=== PATIENT | female | born 1985 | race Asian ===

== ENCOUNTER 2021-06-17 18:02 | Inpatient (IN) ==
[2021-06-17] MEDS ORDERED: Buffered Lidocaine 1% SYRIN 1 ml INTRADERM ONE (19:44)
[2021-06-17] MEDS ORDERED: Lactated Ringers 1000 ml BAG 1,000 ML IV ONE (19:44)
[2021-06-17] MEDS ORDERED: Lactated Ringers 1000 ml BAG 1,000 ML IV SCH (20:00)
[2021-06-17 21:20] LABS: Urine Benzodiazepine Screen None Detected (None Detect); Urine Cannabinoids Screen None Detected (None Detect); Urine Opiates Screen None Detected (None Detect)
[2021-06-17 21:22] LABS: Rapid COVID-19 Molecular Undetected (Undetected)
[2021-06-17] MEDS ORDERED: Oxytocin in LR 20 UNITS/1,000 ML BAG IVPB SCH (22:00)
[2021-06-18 06:51] LABS: Hematocrit 38 % (35-47); Hemoglobin 13.2 g/dL (12.0-16.0); Mean Corpuscular HGB Conc 35 g/dL (31-36); Mean Corpuscular Hemoglobin 31 pg (27-31); Mean Corpuscular Volume 90 fL (80-97); Mean Platelet Volume 10.8 fL (7.4-10.4); Platelet Count 161 10^3/uL (150-450); Red Blood Count 4.25 10^6 /uL (3.70-4.87); Red Cell Distribution Width 14 % (10-15); White Blood Count 6.9 10^3/uL (3.5-10.8)
[2021-06-18] MEDS ORDERED: OBEPIDURAL 250 ML EPIDURAL ONE (12:18)
[2021-06-18] MEDS ORDERED: Lactated Ringers 1000 ml BAG 1,000 ML IV ONE (14:06)
[2021-06-18] MEDS ORDERED: Phenylephrine 40 mcg/mL 10mL (400mcg) SYRINGE IV PUSH PRN ×2 (14:06)
[2021-06-18] MEDS ORDERED: Lactated Ringers 1000 ml BAG 500 ML IV PRN ×2 (14:06)
[2021-06-18] MEDS ORDERED: Sodium Citrate/Citric Acid LIQ 15 ML UDC PO PRN (14:06)
[2021-06-18 14:58] LABS: Urine Appearance Clear; Urine Bilirubin Negative (Negative); Urine Blood 2+ (Negative); Urine Color Colorless; Urine Glucose Negative (Negative); Urine Ketones Negative (Negative); Urine Nitrite Negative (Negative); Urine Protein Negative (Negative); Urine Specific Gravity 1.003 (1.002-1.030); Urine Urobilinogen Negative (Negative)
[2021-06-18] MEDS ORDERED: Lactated Ringers 1000 ml BAG 1,000 ML IV SCH ×2 (15:00→21:00)
[2021-06-18] MEDS ORDERED: OBEPIDURAL 250 ML EPIDURAL SCH (15:00)
[2021-06-18 15:10] LABS: Urine Bacteria Absent (Absent); Urine Red Blood Cell Trace(0-2/hpf) (Absent); Urine White Blood Cell Absent (Absent)
[2021-06-18] MEDS ORDERED: Witch Hazel PAD JAR TOPICAL PRN (20:35)
[2021-06-18] MEDS: Dibucaine 1% OINT 28.35 GM TUBE PR PRN (20:57)
[2021-06-18] MEDS ORDERED: Oxytocin in LR 20 UNITS/1,000 ML BAG IVPB SCH (21:00)
[2021-06-18 22:58] LABS: ABS Lymphocytes 1.1 10^3/ul (1.0-4.8); ABS Monocytes 0.9 10^3/ul (0-0.8); Eosinophil % 0.1 %; Hematocrit 34 % (35-47); Hemoglobin 11.6 g/dL (12.0-16.0); Lymphocyte % 6.8 %; Mean Corpuscular HGB Conc 34 g/dL (31-36); Mean Corpuscular Hemoglobin 31 pg (27-31); Mean Corpuscular Volume 90 fL (80-97); Mean Platelet Volume 10.1 fL (7.4-10.4); Platelet Count 163 10^3/uL (150-450); Red Blood Count 3.76 10^6 /uL (3.70-4.87); Red Cell Distribution Width 14 % (10-15); White Blood Count 16.1 10^3/uL (3.5-10.8)
[2021-06-19] MEDS ORDERED: Lidocaine 1% VIAL 10 MG/ML VIAL ONE (00:06)
[2021-06-19 11:20] LABS: ABS Basophils 0.1 10^3/ul (0-0.2); ABS Eosinophils 0.1 10^3/ul (0-0.6); ABS Lymphocytes 1.2 10^3/ul (1.0-4.8); ABS Monocytes 0.8 10^3/ul (0-0.8); Eosinophil % 0.7 %; Hematocrit 28 % (35-47); Hemoglobin 9.5 g/dL (12.0-16.0); Lymphocyte % 9.9 %; Mean Corpuscular HGB Conc 34 g/dL (31-36); Mean Corpuscular Hemoglobin 30 pg (27-31); Mean Corpuscular Volume 88 fL (80-97); Mean Platelet Volume 10.2 fL (7.4-10.4); Platelet Count 139 10^3/uL (150-450); Red Blood Count 3.13 10^6 /uL (3.70-4.87); Red Cell Distribution Width 14 % (10-15); White Blood Count 12.1 10^3/uL (3.5-10.8)
[2021-06-20 07:54] VITALS: BP 111/67
[2021-06-20] MEDS: Dibucaine 1% OINT 28.35 GM TUBE PR PRN (11:50)
== END 2021-06-20 18:00 | disposition home or self-care (01) | DRG 768 ==
LOC: MCHOBOUT 18:02 → MCHOB 19:45
PROVIDERS: ADMIT Midwife; ATTEND Midwife

== ENCOUNTER 2023-10-09 09:13 | Inpatient (IN) ==
[2023-10-09] MEDS ORDERED: Lidocaine 1% VIAL 10 MG/ML 30 ML VIAL INJ PRN (10:21)
[2023-10-09] MEDS ORDERED: Lactated Ringers 1000 ml BAG 1,000 ML IV ONE ×2 (10:21→15:06)
[2023-10-09] MEDS ORDERED: Promethazine INJ(RESTRICTED) 25 MG/ML 1 ml VIAL IV PRN (10:21)
[2023-10-09] MEDS ORDERED: Buffered Lidocaine 1% SYRIN 1 ml INTRADERM ONE (10:21)
[2023-10-09] MEDS ORDERED: Oxytocin in LR 20,000 MILLI.UNIT/1,000 ML BAG IV SCH (10:25)
[2023-10-09] MEDS ORDERED: Ondansetron 4 mg VIAL 2 MG/ML 2 ml VIAL IV PRN (10:27)
[2023-10-09 11:10] LABS: ABS Eosinophils 0.1 10^3/uL (0.0-0.5); ABS Lymphocytes 1.3 10^3/uL (1.0-4.8); ABS Monocytes 0.5 10^3/uL (0.0-0.9); ABS Neutrophils 5.8 10^3/uL (1.5-7.6); Eosinophil % 0.9 %; Hematocrit 37.7 % (35-45); Lymphocyte % 16.4 %; Mean Corpuscular Hemoglobin 30.1 pg (27-33); Mean Corpuscular Hgb Conc 34.4 g/dL (31-36); Mean Corpuscular Volume 87.5 fL (80-97); Platelet Count 191 10^3/uL (150-450); Red Blood Count 4.31 10^6/uL (3.63-4.92); Red Cell Distribution Width 14.3 % (12-17); White Blood Count 7.7 10^3/uL (3.8-11.8)
[2023-10-09] MEDS: Lactated Ringers 1000 ml BAG 1,000 ML IV SCH ×2 (11:27→15:44)
[2023-10-09 11:35] LABS: Urine Benzodiazepine Screen None Detected (None Detect); Urine Cannabinoids Screen None Detected (None Detect); Urine Opiates Screen None Detected (None Detect)
[2023-10-09] MEDS ORDERED: OBEPIDURAL (200 ML) 200 ML EPIDURAL ONE (14:18)
[2023-10-09] MEDS ORDERED: Lidocaine 1.5% EPI 1:200,000 30 ML SDV ONE (14:19)
[2023-10-09] MEDS ORDERED: Phenylephrine 40 mcg/mL 10mL (400mcg) SYRINGE IV PUSH PRN ×2 (15:06)
[2023-10-09] MEDS ORDERED: Sodium Citrate/Citric Acid LIQ 15 ML UDC PO PRN (15:06)
[2023-10-09] MEDS ORDERED: OBEPIDURAL (200 ML) 200 ML EPIDURAL SCH (16:00)
[2023-10-09] MEDS ORDERED: Lactated Ringers 1000 ml BAG 1,000 ML IV SCH ×2 (16:00→19:00)
[2023-10-09 16:45] LABS: Urine Appearance Clear; Urine Bilirubin Negative (Negative); Urine Blood Negative (Negative); Urine Color Straw; Urine Glucose 1+(50 mg/dL) (Negative); Urine Ketones Negative (Negative); Urine Nitrite Negative (Negative); Urine Protein Negative (Negative); Urine Specific Gravity 1.005 (1.002-1.030); Urine Urobilinogen Negative (Negative)
[2023-10-09] MEDS ORDERED: Glycerin ADULT 2.4 gm SUPP PR PRN (18:48)
[2023-10-09] MEDS ORDERED: Dibucaine 1% OINT 28.35 GM TUBE PR PRN (18:48)
[2023-10-09] MEDS ORDERED: Witch Hazel PAD JAR TOPICAL PRN (18:48)
[2023-10-10 07:08] LABS: ABS Basophils 0.1 10^3/uL (0.0-0.1); ABS Eosinophils 0.1 10^3/uL (0.0-0.5); ABS Lymphocytes 1.7 10^3/uL (1.0-4.8); ABS Monocytes 0.7 10^3/uL (0.0-0.9); ABS Neutrophils 8.1 10^3/uL (1.5-7.6); Eosinophil % 1.1 %; Hematocrit 32.4 % (35-45); Hemoglobin 11.2 g/dL (11.5-14.3); Lymphocyte % 15.9 %; Mean Corpuscular Hemoglobin 30.5 pg (27-33); Mean Corpuscular Hgb Conc 34.7 g/dL (31-36); Mean Corpuscular Volume 87.9 fL (80-97); Mean Platelet Volume 9.8 fL (7.5-11.2); Platelet Count 158 10^3/uL (150-450); Red Blood Count 3.68 10^6/uL (3.63-4.92); Red Cell Distribution Width 14.1 % (12-17); White Blood Count 10.7 10^3/uL (3.8-11.8)
[2023-10-10 15:58] VITALS: BP 127/62
== END 2023-10-10 19:10 | disposition home or self-care (01) | DRG 807 ==
LOC: MCHOBOUT 09:13 → MCHOB 10:19
PROVIDERS: ADMIT Advanced Practice Midwife; ATTEND Advanced Practice Midwife